=== PATIENT | female | born 1990 ===

== ENCOUNTER 2020-07-13 11:47 | Outpatient (REF) | payer OTHER, SELFPAY ==
--- OUTSIDE RECORDS SUMMARY | 2020-07-13 11:55 | XMS_ITS ---
:1990 Author Organization [facility] Address [address], [address] [place] [address] Care Team Providers Name Role Phone Lisandro Edmonds Unavailable Unavailable PROBLEMS Type Condition ICD9-CM [id number] Onset Condition SNOMED Cod e Code Code Dates Status Problem Encounter for Z30.432 Active 568268 00 removal of intrauterine contraceptive device Problem Other specified N89.8 Active 2274 1003 noninflammatory disorders of vagina Problem Acne, unspecified L70.9 Active 11 191363 Problem Presence of Z97.5 Active 12602513 1 (intrauterine) contraceptive device Problem Postcoital and N93.0 Active 31069 000 contact bleeding Problem Migraine without G43.009 Active 425 729685 aura, not intractable, without status migrainosus ALLERGIES Substance Reaction Event Type Date Status Bactrim rash Drug Allergy Jan, Active ENCOUNTERS Encounter Location Date Diagnosis [facility] [address] [place] [address], [address] [place] [address] [facility] [address] [place] [address], [address] Jan, 2020 [facility] [address] [place], [place] examinat ion (general) [address] (routine) withou t abnormal findings Z01.419 and Encounter for farias rveillance of contraceptives, unspecified Z30.40 [facility] [address] [place] [address], [address] Oct, 2019 [address] [place] [address] [facility] [address] [place] [address], [address], [address] [place] [address] [facility] [address] [place] [address], [address] [place] [address] [facility] [address] [place] [address], [address], [facility] for removal of [address] [place], [place] intraute rine contraceptive [address] device Z30.432 a nd Presence of (intrauterine ) contraceptive de vice Z97.5 [facility] [address] [place] [address], [address], Othe r specified [address] [place] [address] vagina N89.8 and Encounter for removal of i ntrauterine contraceptive de vice Z30.432 [facility] [address] [place] [address], [address], [address] [place] [address] [facility] [address] [place] [address], [address], [address] [place] [address] [facility] [address] [place] [address], [address], [address] [place] [address] [facility] [address] [place] [address], [address], Othe r specified [address] [place] [address] vagina N89.8 [facility] [address] [place] [address], [address], [address] [place] [address] [facility] [address] [place] [address], [address], [address] [place] [address] [facility] [address] [place] [address], [address], Prur itus vulvae L29.2 ; [address] [place], [place] [address] vagina, unspecif ied N89.9 ; Encounter for sc reening for infections with a predominantly se xual mode of transmission Z11 .3 and Encounter for sc reening for other infectious and parasitic diseas es Z11.8 [facility] [address] [place] [address], [address], [address] [place] [address] [facility] [address] [place] [address], [address], [address] [place] [address] [facility] [address] [place] [address], [address], [facility] [address] [place], [place] examinat ion (general) [address] (routine) with a bnormal findings Z01.411 ; Presence of (intrauterine ) contraceptive de vice Z97.5 and Acute vagini tis N76.0 [facility] [address] [place] [address], [address], Mast odynia N64.4 [address] [place] [address] [facility] [address] [place] [address], [address], [address] [place] [address] [facility] [address] [place] [address], [address] Nov, [address] [place] [address] [facility] [address] [place] [address], [address] Oct, [facility] for other general [address] [place] [address] contraception Z3 0.09 and Acne, unspecifie d L70.[address] Aug, 2017 Acne , unspecified L70.9 ; [address] [place] Encounte [place] for other general [address] counseling and a dvice on contraception Z3 0.09 and Migraine without aura, not intractable, wit hout status migrainosus G43. [address], [address], [address] [place] [address], [address], Post coital and contact [address] [place] bleeding N93.0 and Presence [address] of (intrauterine ) contraceptive de vice Z97.[address], [address], [address] [place] [address] [facility] [address] [place] [address], [address], [address] [place] [address] [facility] [address] [place] [address], [address], [address] [place] [address], [address], [facility] [address] [place], [place] examinat ion (general) [address] (routine) with a bnormal findings Z01.411 ; Presence of (intrauterine ) contraceptive de vice Z97.5 ; Postcoital and c ontact bleeding N93.0 ; Encounter for screening fo r infections with a predomina ntly sexual mode of transmis manoj Z11.3 ; Encounter for sc reening for other infectious and parasitic diseas es Z11.8 and Candidiasis of v ulva and vagina B37.3 [facility] [address] [place] [address], [address], [facility] routine [address] [place], [place] checking of intrauterine [address] contraceptive de vice Z30.431 and Presence of (intrauterine) c ontraceptive device Z97.[address], [address], [address] [place] [address] [facility] [address] [place] [address], [address], [facility] insertion of [address] [place], [place] intraute rine contraceptive [address] device Z30.430 ; Encounter for te st, result negative Z32.02 ; Encounter for screening fo r infections with a predomina ntly sexual mode of transmis manoj Z11.3 ; Encounter for sc reening for other infectious and parasitic diseas es Z11.8 and Presence of (int rauterine) contraceptive de vice Z97.[address], [address], [address] [place] [address] [facility] [address] [place] [address], [address], [facility] other general [address] [place] [address] contraception Z3 0.09 and Urgency of urina tion R39.15 IMMUNIZATIONS No Known Immunizations SOCIAL HISTORY Qualifiers Date Never Smoker REASON FOR REFERRAL FUNCTIONAL STATUS PLAN OF CARE Activity Details Follow Up 1 Year Reason: VITAL SIGNS Temperature 96.9 degrees Fahrenheit 2020-01-26 Height 67 in 2020-01-26 Height 67 in 2018-03-25 Height 67 in 2017-03-24 Height 67 in 2016-11-17 Weight 138 lbs 2020-01-26 Weight 131 lbs 2018-03-25 Weight 140 lbs 2017-03-24 Weight 142 lbs 2016-11-17 BMI 21.61 kg/m2 2020-01-26 BMI 20.52 kg/m2 2018-03-25 BMI 21.92 kg/m2 2017-03-24 BMI 22.24 kg/m2 2016-11-17 Blood pressure systolic 102 2018-08-15 Blood pressure diastolic 62 2018-08-15 MEDICATIONS Medication Instructions Dosage Frequency Start End Duration Statu s Date Date Multivitamin Not-Taki ng Claritin 10 MG 1 tablet Not-Taki ng MetroGel-Vaginal Vaginal Once a 1 applicatorful Mar, 35 days Not-Taki 0.75 % week at bedtime 2018 ng Cleocin 2 % Vaginal Once a 1 applicatorful 24h Apr, 10 da ys Not-Taki day at bedtime 2018 ng Metronidazole Orally Twice a 1 tablet 12h Mar, 14 days No t-Taki 500 MG day 2018 ng Fluconazole 150 Orally take 1 1 tablet May, 3 days N ot-Taki MG now and 2018 ng another in 72 hours Ivanna 3-0.03 MG Orally Once a 1 tablet 84 days A ctive day skipping placebos continuous use Spironolactone Active Prozac Active Fluconazole 150 Orally take 1 1 tablet Apr, 5 days N ot-Taki MG and 2018 ng antoher in 5 days Fluticasone Nasally Once a 2 sprays in 24h N ot-Taki Propionate 50 day each nostril ng MCG/ACT Naproxen 500 MG 1 tablet Not-Rodrigo i ng PROCEDURES Procedure Date Ordered Result Body Site Specimen Handling Mar 24, 2017 U/A (urine dipstick in house) Nov 17, 2016 ASSAY OF BODY FLUID ACIDITY Mar 24, 2017 Urine test Dec 14, 2016 Wet smear Mar 24, 2017 Wet smear May 23, 2018 IUD insertion Dec 14, 2016 Wet smear Apr 20, 2018 Paracervical Block Dec 14, 2016 TVUS (non-Ob) Apr 12, 2017 Wet smear Mar 25, 2018 ASSAY OF BODY FLUID ACIDITY Apr 20, 2018 ASSAY OF BODY FLUID ACIDITY May 23, 2018 IUD removal August 15, 2018 ASSAY OF BODY FLUID ACIDITY Mar 25, 2018 Specimen Handling Dec 14, 2016 Mirena IUD supply Dec 14, 2016 RESULTS Name Result Date Reference Range GC/CT (alone) 2018-04-20 CHLAMYDIA TRACHOMATIS RNA, TMA, NOT DETECTED NOT DETECTED UROGENITAL NEISSERIA GONORRHOEAE RNA, TMA, NOT DETECTED NOT DETECTED UROGENITAL COMMENT Ultrasound : Breast, left Thin Prep 2017-03-24 Results Below CHLAMYDIA/GC , THIN PREP 2017-03-24 Specimen Description Cervix, ThinPrep vial Chlamydia Result Negative GC Result Negative CHLAMYDIA/GC AMPLIFIED, URINE 2016-12-14 Specimen Description Urine Chlamydia Result Results Below GC Result Results Below URINALYSIS WITH MICROSCOPIC 2016-11-17 Color Yellow Clarity Clear Glucose Neg NEG Bilirubin Neg NEG Ketones Neg NEG Spec. Grav. 1.020 1.001-1.03 Blood Neg NEG pH USE FOR 6.0 4. 6-8.0 Protein Neg NEG Urobilin. 0.2 0.2-1.0 Nitrite Neg NEG Leuk. Est. Neg NEG WBC's less than 1 0-5 RBC's None seen 0-5 Squam. Epith. Many NS Renal Epith. 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, AE, OCP needs PA- now it doesn''t, OCP refill, Annual reminder, continuous use pls, IUD removal; , IUD removal, vaginal sx, Re:RE:requests tele call from RA, requests tele call from RA, itching, continued problem, Last seen 04/20/18 by RA for vaginal sxs, >Rx'd Fluconazole and Cleocin, spotting, Neg GC/CT, discharge, Last seen 03/25/18 by RA for preventiveGYN exam, new symptoms, Is 14 days correct?, preventive RACE STARTER exam, L breast pain, Last seen by 10/18/17by RA for a f/u for Mirena concerns, Annual reminder, 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 (see tele en flori), Last seen on 04/12/17 by [facility] for TVUS for IUD placement, >Findings: Normal pelvic ultrasound, IUD correctly placed, Right CL seen., acne and Mirena, IUD placement; , nl Pap, neg GC/CT, negative GC/CT, TVUS w/Lakia, Preventive RACE STARTER exam + IUD check, Last seen: 01/11/17 by RA for IUD check, IUD check , Last seen: 12/14/16 by RA for Mirena insert, negative GC/CT, Mirena Insertion, She was last seen on 11/17/16 by RA for IUD consult, Mirena, urine testing, new, IUD consult Insurance Providers Health Health Health Health Health Member Patient Patient Patient Patient Patient Subscriber Subscriber Subscriber Group Insurance Plan Plan Plan Plan ID Relationship Address Phone Name Date of ID Name Date of No Type Insurance Insurance Insurance Coverage to Subscriber Address Phone Name Dates CRUZ [id number] [employer] self Zoë [id number] [place] [address] [place] [address]76 [phone] [place] [id number] INSURANCE CINDY [address] [facility] [address] [facility] [address] [place] [id number] [phone] [place] [id number] [phone] [id number] INSURANCE CINDY [address] [facility] [place] [address]
== END 2020-07-13 11:48 | disposition home or self-care (01) ==
LOC: LBN 11:47
PROVIDERS: Visit Provider Physician Assistant Medical
DX: N39.0 Urinary tract infection, site not specified (principal)
CPT/HCPCS: 87086